=== PATIENT | male | born 1985 | race Caucasian/White ===

== ENCOUNTER 2020-03-03 11:17 | Emergency (ER) | payer BC, SELFPAY ==
[2020-03-03 11:19] VITALS: BP 146/87; PULSE 103; RESP 17; TEMP 36.9; O2SAT 95; BMI 34.0
--- NOTE | 2020-03-03 11:32 | ED.VIS.GEN ---
History of Present Illness Chief Complaint: Laceration Informant: Patient Onset: Today Current Severity: Mild Maximum Severity: Mild Narrative: Patient sustained a right hand laceration working with steel in his own garage. This is not work-related his last tetanus was about 8 to 9 years ago, he denies any other injury. Past Medical History - Allergies and Home Meds Allergies/Adverse Reactions: Allergies No Known Allergies Allergy (Verified 03/03/20 11:18) Primary Care Physician: Bill Dubon MD [Primary Care Provider] - Past Medical History: None Smoking Status: Current every day smoker Review of Systems General: Reports: - - Negative, no other injury Musculoskeletal: Reports: - - Hand wound as above Skin: Reports: - - Laceration Neurological: Denies: Parasthesia, Numbness Hematologic: Denies: Easy bruising, Easy bleeding Physical Exam Vital Signs/Narrative: Vital Signs Temp Pulse Resp BP Pulse Ox 03/03/20 11:19 98.4 F 103 H 17 146/87 H 95 General: Well nourished, Well developed Cardiovascular: Regular rate Respiratory: No distress Extremities: - - There is a 1.5 cm laceration in the hyperthenar region of his right hand. Skin: Normal color, - - Laceration as above Neurological: Normal Strength, Normal Sensation Psychological: Normal affect Diagnostic/Tx/Re-eval - Medical Decision Making Tetanus will be updated patient will be discharged in stable condition Procedures - Lacerations No standard instances Depth: Sub Q Shape: Linear Prep: Bao Laceration repair: Dermabond Comment: Wound approximated quite well with Dermabond. It is a 1.5 cm wound on the right hand. ED Disposition - Plan for ED Patient: Disposition: Home or Assisted Living Diagnosis: Hand laceration Instructions: ED Laceration Ext Skin Glue Referrals: Bill Dubon MD [Primary Care Provider] - 3-5 Days
[2020-03-03] MEDS: Diphth,Pertuss(Acell),Tet Vac 0.5 ML Vial IM (11:47)
== END 2020-03-03 12:32 | disposition home or self-care (01) ==
LOC: ED 12:00
PROVIDERS: Emergency Provider Emergency Medicine; PCP Family Medicine
DX: S61.411A Laceration without foreign body of right hand, initial encounter (principal); F17.200 Nicotine dependence, unspecified, uncomplicated; Z23 Encounter for immunization; W26.8XXA Contact with other sharp object(s), not elsewhere classified, initial encounter; Y93.89 Activity, other specified; Y92.008 Other place in unspecified non-institutional (private) residence as the place of occurrence of the external cause; Y99.8 Other external cause status
CPT/HCPCS: 12001; 90471; 90715; 99282

== ENCOUNTER 2022-09-19 22:18 | Emergency (ER) | payer BC, SELFPAY ==
[2022-09-19 22:18] VITALS: BP 136/92; PULSE 53; RESP 16; TEMP 35.8; O2SAT 99
[2022-09-19 22:19] VITALS: BP 136/92; PULSE 53; RESP 16; TEMP 35.8; O2SAT 99; BMI 32.6
--- NOTE | 2022-09-19 22:31 | CT_ITS ---
STUDY: CT ABDOMEN AND PELVIS WITHOUT CONTRAST REASON FOR EXAM: Male, 37 years old. right flank pain RADIATION DOSAGE (If Supplied By Facility): CTDIvol = ( 11.96 ) mGy, DLP = ( 690.52 ) mGycm TECHNIQUE: Transaxial images were obtained from the dome of the diaphragm to the symphysis pubis without oral contrast, and without intravenous contrast. Sagittal and coronal images were reconstructed. Individualized dose optimization techniques were used for this CT. COMPARISON: None. FINDINGS: The visualized lung bases are unremarkable. The visualized portions of the heart are within normal limits. Normal liver. Normal gallbladder and extrahepatic biliary system. Normal spleen. Normal pancreas. Normal bilateral adrenal glands. Bilateral nonobstructing renal stones. 6 mm obstructing stone of the mid right ureter with moderate ureteral dilatation and hydronephrosis. Normal visualized stomach. Normal small intestine. Normal colon. The appendix is visualized and appears normal. Normal abdominal aorta. Normal inferior vena cava. Normal retroperitoneum. Normal urinary bladder. Normal abdominal wall. Normal osseous structures. CT/Abdomen/Pelvis without Cont IMPRESSION: 6 mm obstructing stone in the mid right ureter with moderate ureteral dilatation and hydronephrosis per Electronically Signed: Jas Barron MD at 23:20 EST ,
--- NOTE | 2022-09-19 22:32 | EX.ED.DYSGE1 ---
HPI History of Present Illness Chief Complaint: Flank Pain Detail of Chief Complaint: Right flank pain Informant: patient Onset/Context/Timing Onset: Today Context: Gradual Onset Current Severity: Mild Maximum Severity: Moderate Narrative Narrative: Patient presents with right flank pain that started around 730 this evening. He tried Tylenol and ibuprofen without improvement. He has a history of kidney stones but states this pain does not feel similar. feels that he has been burping more than normal tonight. He also had a similar episode of pain 1 week ago that did resolve after Tylenol and ibuprofen. Symptoms tonight started about 2 hours after eating dinner. [facility] Medical History Kidney stones Home Medications ibuprofen 800 mg tablet 800 mg PO Q6H PRN pain #14 tabs 09/20/22 [Rx Last Taken Unknown] ondansetron 4 mg disintegrating tablet 4 mg PO Q8H PRN nausea and vomiting #10 tabs 09/20/22 [Rx Last Taken Unknown] oxycodone-acetaminophen 5 mg-325 mg tablet (Percocet) 1 tab PO Q6H PRN pain 3 days #10 tabs 09/20/22 [Rx Last Taken Unknown] Allergy/AdvReac Type Severity Reaction Status Date / Time No Known Allergies Allergy Verified 10/24/21 11:47 Family History Other CVA (cerebral vascular accident) Cancer Diabetes Heart disease Hypertension Social History Smoking Status: Former smoker ROS ROS ED Constitutional Constitutional ED: Denies chills or fever(s) Eyes Eyes: Denies change in vision or discharge from eye(s) ENT ENT ED: Denies discharge from eye(s), rhinorrhea or sore throat Cardiovascular Cardiovascular: Denies chest pain or palpitations Respiratory/Chest Respiratory/Chest: Denies cough or dyspnea Gastrointestinal Gastrointestinal: Reports abdominal pain and nausea; Denies diarrhea or vomiting Genitourinary Genitourinary ED: Denies difficulty urinating, dysuria or hematuria Musculoskeletal Musculoskeletal: Reports back pain; Denies extremity pain Integumentary Denies Abrasions or rash Neurologic Neurologic: Denies headache(s) or weakness Allergic/Immunologic Allergic/Immunologic ED: Denies lip swelling or urticaria EXAM Physical Exam Const Vital Signs: 09/19/22 22:19 09/19/22 22:18 09/19/22 22:55 Temperature 96.5 F L 96.5 F L Temperature Source Temporal Temporal Pulse Rate 53 L 53 L Respiratory Rate 16 16 Respiratory Effort Normal Non-Labored Respiratory Pattern Normal Blood Pressure 136/92 H 136/92 H Blood Pressure Mean 106 106 Pulse Ox 99 99 Oxygen Delivery Method Room Air Room Air Positive well nourished and well developed General Appearance ED: well developed HEENT Reports normocephalic and head/scalp atraumatic Eyes PERRL and EOMs intact bilaterally Neck supple Chest Wall inspection of chest normal and palpation of chest normal Resp normal respiratory effort and clear to auscultation bilaterally Cardio regular rate and regular rhythm GI GI Narrative: Tenderness of patient in both right upper and right lower quadrants. No guarding or rebound. Hypoactive bowel sounds noted. Palpation: soft Back/Spine no CVA tenderness Extremity normal to inspection Neuro oriented x3 and no sensory deficits noted Sensorium / Orientation: alert Motor Exam: strength 5/5 throughout Psych mental status grossly normal Skin no rashes or lesions noted MDM MDM MDM Narrative Medical decision making narrative: Patient had taken Tylenol and ibuprofen at home. He was given morphine and Zofran here along with IV fluids. Lab work obtained along with CT flank. Lab Data Attestation: I reviewed the patient's lab results. Labs: Laboratory Results - last 24 hr 09/19/22 09/19/22 22:50 22:50 WBC 11.3 H RBC 4.57 L Hgb 15.1 Hct 44.6 MCV 97.6 H MCH 33.0 H MCHC 33.9 RDW Std Deviation 41.8 RDW Coeff of Ladonna 11.8 Plt Count 282 MPV 10.0 Immature Gran % (Auto) 0.400 Neut % (Auto) 72.5 H Lymph % (Auto) 18.0 L Cecil % (Auto) 7.1 Eos % (Auto) 1.6 Baso % (Auto) 0.4 Absolute Neuts (auto) 8.2 H Absolute Lymphs (auto) 2.03 Nucleated RBC % 0 Sodium 141 Potassium 3.6 Chloride 107 Carbon Dioxide 28.0 Anion Gap 6 BUN 15 Creatinine 1.32 H Estim Creat Clear Calc 74.85 Est GFR (MDRD) Af Amer 79 Est GFR (MDRD) Non-Af 65 BUN/Creatinine Ratio 11.4 Glucose 117 H Calcium 9.7 Total Bilirubin 0.50 Direct Bilirubin 0.15 AST 30 ALT 49 Alkaline Phosphatase 75 Total Protein 7.4 Albumin 3.9 Globulin 3.5 Lipase 164 Radiography Diagnostic Testing: Clinical Impression(s) from Imaging Studies Abdomen/Pelvis CT 09/19/22 22:31 IMPRESSION: 6 mm obstructing stone in the mid right ureter with moderate ureteral dilatation and hydronephrosis per Electronically Signed: Jas Barron MD at 23:20 EST , Treatment and Re-Evaluation Narrative: CBC with mild white count at 11.3. No significant left shift. Chemistry studies reveal creatinine 1.32. No prior values to compare to. LFTs and lipase are normal. CT flank reveals a 6 mm obstructing stone in the mid right ureter. On repeat evaluation patient states he still has pain with the edge has been taken off. He is given another dose of morphine along with 30 mg of IV Toradol. At this time patient states his pain is significantly improved. Patient will be given prescriptions for ibuprofen 800 and Percocet. Zofran will be ordered. He will call Dr. Clark who has seen in the past for close follow-up. He was also given return instructions to the ER for worsening symptoms or concerns. Discharge Plan Triage Chief Complaint: Flank Pain ED Provider: Dominga Hamilton Dx/Rx/DC Orders Clinical Impression: Ureterolithiasis Instructions: ED Kidney Stone w/ Colic Prescriptions: New ibuprofen 800 mg tablet 800 mg PO Q6H PRN (Reason: pain) Qty: 14 0RF ondansetron 4 mg tablet,disintegrating 4 mg PO Q8H PRN (Reason: nausea and vomiting) Qty: 10 0RF oxycodone-acetaminophen [Percocet] 5-325 mg tablet 1 tab PO Q6H PRN (Reason: pain) 3 Days Qty: 10 0RF Primary Care Provider: Rogelio Clemente Referrals: Alonso Clark MD [Med Staff - Active Staff] - As soon as possible Chewey,Bill, MD [Non-Staff] - Disposition Disposition: Home, Self Care
[2022-09-19] MEDS: 0.9% Normal Saline 1,000 ML 150 ML IV (22:43)
[2022-09-19] MEDS: Ondansetron 4 MG/2 ML Vial IV (22:44)
[2022-09-19] MEDS: Morphine 4 MG/ML Syringe IV ×2 (22:44→23:32)
[2022-09-19 22:54] LABS: Absolute Lymphocyte Count 2.03 X10^3/uL (0.83-4.51); Absolute Neutrophil Count 8.2 X10^3/uL (2.0-7.7); Basophil# 0.05 X10^3/uL; Basophil% 0.4 % (0-1); Eosinophil# 0.18 X10^3/uL; Eosinophils% 1.6 % (0-5); Hematocrit 44.6 % (40-54); Hemoglobin 15.1 g/dL (13.0-16.5); Lymphocyte # 2.03 X10^3/ul (0.83-4.51); Mean Corp Hgb Conc 33.9 g/dL (32-36); Mean Corpuscular Volume 97.6 fL (80-94); Monocyte% 7.1 % (0-10); NRBC Flagged by Analyzer 0 % (0-5); Neutrophil % 72.5 % (47-70); Platelet Count 282 K/mm3 (150-450); RBC Distribution Width CV 11.8 % (11.6-14.6); RBC Distribution Width SD 41.8 fl (35.1-43.9); Red Blood Count 4.57 M/mm3 (4.6-6.2); White Blood Count 11.3 K/mm3 (4.4-11.0)
[2022-09-19 23:11] LABS: AST(SGOT) 30 U/L (15-37); Alanine Aminotransfer ALT/SGPT 49 U/L (16-61); Albumin, Serum 3.9 g/dL (3.2-5.0); Alkaline Phosphatase 75 U/L (45-117); Anion Gap 6 (5-15); BUN 15 mg/dL (7-18); BUN/Creat Ratio 11.4 RATIO (10-20); Bilirubin, Direct 0.15 mg/dL (0.00-0.30); Calcium,Total 9.7 mg/dL (8.5-10.1); Chloride 107 mmol/L (98-107); Creatinine, Serum 1.32 mg/dL (0.70-1.30); EST Glomerular Filtration Rate 65 mL/min (>60); Est Glom Filt Rate - Afr Amer 79 mL/min (>60); Estimated Creatinine Clearance 74.85 ml/min; Globulin 3.5 g/dL (2.2-4.2); Glucose 117 mg/dL (74-106); Lipase 164 U/L (73-393); Potassium 3.6 mmol/L (3.5-5.1); Protein, Total 7.4 g/dL (6.4-8.2); Sodium Level 141 mmol/L (136-145)
[2022-09-19] MEDS: Ketorolac 30 MG/ML Syringe IV (23:32)
[2022-09-20 00:42] VITALS: BP 108/68; PULSE 57; O2SAT 100
[2022-09-20 01:00] LABS: Mucous, Urine 0 SEEN /hpf (<or=2+); Squamous Epithelial Cells - UA 0 SEEN /hpf (0-5)
[2022-09-20 01:04] LABS: Color, Urine Amber (Yellow); Glucose, Dipstick Normal (Normal); Ketone-Dipstick 15 mg/dl (Negative); Leukocyte Esterase-Dipstick 25 /ul (Negative); Nitrite-Dipstick Negative (Negative); Occult Blood-Urine 250 /ul (Negative); Protein-Dipstick 100 mg/dl (Negative); Urine Bilirubin Dipstick Negative (Negative); Urine Clarity Sl. Cloudy (Clear); Urine Urobilinogen Normal (Normal)
[2022-09-20 01:27] LABS: Hyaline Cast 0-5 SEEN /lpf (0-5); Red Blood Cells-Urine > 100 SEEN /hpf (0-5); White Blood Cells 5-10 SEEN /hpf (0-5)
[2022-09-20 01:28] LABS: Bacteria 1+ /hpf (None Seen)
== END 2022-09-20 01:18 | disposition home or self-care (01) ==
PROVIDERS: Emergency Provider Emergency Medicine; PCP Family Medicine; Visit Provider Emergency Medicine
DX: N20.1 Calculus of ureter (principal); Z87.891 Personal history of nicotine dependence; R10.9 Unspecified abdominal pain
CPT/HCPCS: 74176; 80048; 80076; 81001; 83690; 85025; 96361; 96374; 96375; 96376; 99283; J7030; A4216; J2405